=== PATIENT | female | born 1945 | race Two or more races ===

== ENCOUNTER 2021-07-24 06:49 | Outpatient (CLI) | payer OTHER | END 2021-07-24 06:59 | disposition home or self-care (01) | LOC: LAB 06:49 | PROVIDERS: ATTEND Obstetrics & Gynecology | DX: N95.2 Postmenopausal atrophic vaginitis (principal); E03.9 Hypothyroidism, unspecified; E55.9 Vitamin D deficiency, unspecified; R73.9 Hyperglycemia, unspecified; E78.9 Disorder of lipoprotein metabolism, unspecified; D64.9 Anemia, unspecified; N39.0 Urinary tract infection, site not specified; R19.09 Other intra-abdominal and pelvic swelling, mass and lump; R97.8 Other abnormal tumor markers ==

== ENCOUNTER → 2021-07-24 | Outpatient (CLI) | payer OTHER | END | disposition home or self-care (01) | LOC: MAMO-SONO 07:47 | PROVIDERS: ATTEND Obstetrics & Gynecology | DX: Z12.31 Encounter for screening mammogram for malignant neoplasm of breast (principal); N64.4 Mastodynia ==

== ENCOUNTER → 2022-08-02 07:00 | Outpatient (CLI) | payer OTHER | END | disposition home or self-care (01) | LOC: LAB 07:00 | PROVIDERS: ATTEND Obstetrics & Gynecology | DX: N95.2 Postmenopausal atrophic vaginitis (principal); E03.9 Hypothyroidism, unspecified; E55.9 Vitamin D deficiency, unspecified; R73.9 Hyperglycemia, unspecified; E78.9 Disorder of lipoprotein metabolism, unspecified; D64.9 Anemia, unspecified; N39.0 Urinary tract infection, site not specified; R19.09 Other intra-abdominal and pelvic swelling, mass and lump; R97.8 Other abnormal tumor markers ==

== ENCOUNTER 2022-08-02 07:38 | Outpatient (CLI) | payer OTHER | END 2022-08-02 07:45 | disposition home or self-care (01) | LOC: MAMO-SONO 07:38 | PROVIDERS: ATTEND Obstetrics & Gynecology | DX: Z12.31 Encounter for screening mammogram for malignant neoplasm of breast (principal); N64.4 Mastodynia ==

== ENCOUNTER 2024-07-13 06:29 | Outpatient (CLI) | payer OTHER ==
[2024-07-13 07:40] LABS: HEMATOCRIT 38.5 % (36.0-45.00); HEMOGLOBIN 12.6 g/dL (12.0-15.00); MEAN CELL VOLUME 86.2 fL (80.00-100.00); MEAN CORPUSCULAR HEMOGLOBIN 28.3 pg (27.00-32.0); MEAN CORPUSCULAR HGB CONC 32.8 g/dl (32.0-36.0); PLATELET COUNT 319 K/uL (150-450); RED BLOOD COUNT 4.46 M/uL (4.00-6.00); RED CELL DISTRIBUTION WIDTH 14.3 % (11.5-14.5)
[2024-07-13 08:13] LABS: ALBUMIN 3.5 gm/dL (3.4-5.0); BILIRUBIN TOTAL 0.67 mg/dL (0.3-1.2); CALCIUM 9.7 mg/dL (8.5-10.1); CHOL HDL RATIO 1.8 (0-5.0); CREATININE SERUM 0.56 mg/dL (0.55-1.02); FREE TRIODOTIRONINE 2.99 pg/ml (2.18-3.98); GFR 104.97; GLOBULINA 3.3 G/DL (2.4-3.5); POTASSIUM 4.08 mEq/L (3.5-5.1); T4 FREE 1.08 NG/ML (0.76-1.46); T4 TOTAL 8.32 UG/DL (4.8-13.9); TOTAL PROTEIN 6.8 gm/dL (6.4-8.2); TSH 1.37 uIU/mL (0.358-3.74)
[2024-07-13 08:46] LABS: PH,URINE 5.5 (5.0-8.0); URINE APPEARANCE Clear; URINE BILIRRUBIN Negative (NEGATIVE); URINE BLOOD Negative; URINE COLOR Yellow; URINE GLUCOSE Negative (NEGATIVE); URINE KETONE Negative (NEGATIVE); URINE LEUKOCYTE Moderate; URINE NITRATE Negative; URINE PROTEIN Negative (NEGATIVE); URINE UROBILINOGEN 0.2 E.U./dl
[2024-07-13 08:50] LABS: URINE BACTERIA 127.2 uL (0.0-1933); URINE EPITHELIAL CELLS 8.8 uL (0.0-38.8); URINE RBC 5.5 uL (0.0-20.8); URINE WBC 17.8 uL (0.0-23.2)
[2024-07-13 10:54] LABS: VITAMIN D3 25 HYDROXY 76.59 ng/ml (30-120)
[2024-07-14 09:08] LABS: FOLLICLE STIMULATING HORMONE 61.5 mIU/mL (25.8-134.8)
[2024-07-14 11:05] LABS: ANTI THYROID PEROXIDASE 22 IU/mL (0-34); CA 125 6.2 U/mL (0.0-38.1); ESTRADIOL SERUM < 5.0 pg/mL (0.0-54.7)
== END 2024-07-13 06:38 | disposition home or self-care (01) ==
LOC: LAB 06:29
PROVIDERS: ATTEND Obstetrics & Gynecology
DX: N95.2 Postmenopausal atrophic vaginitis (principal); E03.9 Hypothyroidism, unspecified; E55.9 Vitamin D deficiency, unspecified; R73.9 Hyperglycemia, unspecified; E78.9 Disorder of lipoprotein metabolism, unspecified; D64.9 Anemia, unspecified; N39.0 Urinary tract infection, site not specified; R19.09 Other intra-abdominal and pelvic swelling, mass and lump; R97.8 Other abnormal tumor markers; R97.1 Elevated cancer antigen 125 [CA 125]; G89.3 Neoplasm related pain (acute) (chronic)

== ENCOUNTER 2024-08-25 07:34 | Outpatient (CLI) | payer OTHER | END 2024-08-25 07:41 | disposition home or self-care (01) | LOC: MAMO-SONO 07:34 | DX: N63.0 Unspecified lump in unspecified breast (principal); Z12.31 Encounter for screening mammogram for malignant neoplasm of breast ==